=== PATIENT | female | born 1965 | race Caucasian/White ===

== ENCOUNTER 2018-01-24 08:02 | Day surgery (SDC) | payer OTHER ==
[~2018-01-24 08:02] MED LIST: Lactated Ringers 1,000 ML IV SCH; Lidocaine 2% 5 ML SDV ONE; Midazolam 1 MG/ML 2 ML SDV ONE; Propofol 200 MG/20 ML SDV ONE; fentaNYL 100 MCG/2 ML SDV ONE
--- NOTE | 2018-01-24 08:48 | PCM.PREANE ---
Preanesthetic Assessment - Anesthesia/Transfusion/Family Hx Anesthesia History: Prior Anesthesia Without Reaction Family History of Anesthesia Reaction: No Transfusion History: No Prior Transfusion(s) - Review of Systems General: No Symptoms Pulmonary: No Symptoms Cardiovascular: No Symptoms Gastrointestinal: No Symptoms Neurological: No Symptoms Other: Reports: None - Physical Assessment NPO Status Date: 01/23/18 NPO Status Time: 21:30 O2 Sat by Pulse Oximetry: 97 Respiratory Rate: 16 Vital Signs: Last Vital Signs Temp 97.5 F 01/24/18 08:21 Pulse 78 01/24/18 08:21 Resp 16 01/24/18 08:20 BP 130/68 01/24/18 08:20 Pulse Ox 97 01/24/18 08:20 Height: 5 ft 4 in Weight: 120.656 kg ASA Class: 3 Mental Status: Alert & Oriented x3 Airway Class: Mallampati = 3 Dentition: Reports: Normal Dentition Thyro-Mental Finger Breadths: 3 Mouth Opening Finger Breadths: 3 ROM/Head Extension: Limited/Partial Lungs: Clear to Auscultation, Normal Respiratory Effort Cardiovascular: Regular Rate, Regular Rhythm - Lab Values: Laboratory Last Values Urine HCG, Qual NEGATIVE (NEGATIVE) 01/24/18 08:15 - Allergies Allergies/Adverse Reactions: Allergies Allergy/AdvReac Type Severity Reaction Status Date / Time [place] And Derivatives Allergy Difficulty Verified 01/18/18 10:15 Breathing grass pollen Allergy Difficulty Verified 01/18/18 10:15 Breathing mold Allergy Hives Verified 01/18/18 10:15 mushroom Allergy Hives Verified 01/18/18 10:15 theophylline Allergy Sweating/steele Verified 01/18/18 10:15 lluncinatio ns tomato Allergy Rash Verified 01/18/18 10:15 raw tomato Allergy hives/difficulty Uncoded 01/18/18 10:15 breathing - Acknowledgements Anesthesia Type Planned: MAC Pt an Appropriate Candidate for the Planned Anesthesia: Yes Alternatives and Risks of Anesthesia Discussed w Pt/Guardian: Yes Pt/Guardian Understands and Agrees with Anesthesia Plan: Yes PreAnesthesia Questionnaire HEENT History: Reports: Other (See Below) Other HEENT History: wears glasses/ contacts Cardiovascular History: Reports: Hypertension Respiratory History: Reports: Asthma (Uses rescue inhaler x1-2 times per week.) , Sleep Apnea Other Respiratory History: uses CPAP Gastrointestinal History: Reports: GERD (occ.), Other (See Below) Other Gastrointestinal History: hx colitis Genitourinary History: Reports: Renal Calculus Other Genitourinary History: tubal GRAIN ORIGINATION SPECIALIST History: Reports: Ectopic , , Other (See Below) Other OB/BYN History: ovarian cyst Musculoskeletal History: Reports: Fracture Other Musculoskeletal History: toes Neurological History: Reports: None Psychiatric History: Reports: None Endocrine/Metabolic History: Reports: Obesity/BMI 30+ Hematologic History: Reports: None Immunologic History: Reports: None Oncologic (Cancer) History: Reports: None Dermatologic History: Reports: None - Infectious Disease History Infectious Disease History: Reports: None - Past Surgical History Head Surgeries/Procedures: Reports: None HEENT Surgical History: Reports: Tonsillectomy Cardiovascular Surgical History: Reports: None Respiratory Surgical History: Reports: None GI Surgical History: Reports: Colonoscopy Female Surgical History: Reports: Breast Biopsy, Kidney stone extraction, Other (See Below) Other Female Surgeries/Procedures: Laparoscopy for Ectopic , laparoscopy x2 for removal of ovarian cysts Endocrine Surgical History: Reports: None Neurological Surgical History: Reports: None Musculoskeletal Surgical History: Reports: None Oncologic Surgical History: Reports: Biopsy of Breast - SUBSTANCE USE Smoking Status *Q: Never Smoker Recreational Drug Use History: No - HOME MEDS Home Medications: Home Meds Albuterol Sulfate [Proair Hfa] 2 puff INH QID PRN 01/02/16 [History] amLODIPine [Norvasc] 1 tab PO BID 01/02/16 [History] Multivitamin [Multivitamins] 1 tab PO DAILY 01/18/18 [History] Vitamin B Complex 1 tab PO DAILY 01/18/18 [History] - CURRENT (IN HOUSE) MEDS Current Meds: Current Medications Lactated Ringer's (Ringers, Lactated) 1,000 mls @ 125 mls/hr IV ASDIRECTED [facility] Last Admin: 01/24/18 08:25 Dose: 125 mls/hr
--- NOTE | 2018-01-24 10:34 | PCM.OPNOTE ---
- General Post-Op/Procedure Note Date of Surgery/Procedure: 01/24/18 Operative Procedure(s): Colonoscopy Pre Op Diagnosis: Personal history of colitis. Desire for colorectal cancer screening. Post-Op Diagnosis: No evidence of inflammatory bowel disease or malignant disease. Anesthesia Technique: MAC (ASA III) Primary Surgeon: Mulugeta Guidry Condition: Good Free Text/Narrative:: DICTATION [id number] CPT CODE 21719
[2018-01-24] MEDS ORDERED: Lactated Ringers 1,000 ML IV SCH (10:45)
--- NOTE | 2018-01-24 10:50 | PCM.POSTAN ---
POST ANESTHESIA ASSESSMENT - MENTAL STATUS Mental Status: Alert, Oriented - VITAL SIGNS SaO2: 98 (RA) - RESPIRATORY Respiratory Status: Respiratory Rate WNL, Airway Patent, O2 Saturation Stable - CARDIOVASCULAR CV Status: Pulse Rate WNL, Blood Pressure Stable - GASTROINTESTINAL GI Status: No Symptoms - POST OP HYDRATION Hydration Status: Adequate & Stable
[2018-01-24 11:23] VITALS: BP 110/53
--- NOTE | 2018-01-24 11:43 | PCM48HPAN ---
Post Anesthesia Note - EVALUATION WITHIN 48HRS OF ANESTHETIC Vital Signs in Normal Range: Yes Patient Participated in Evaluation: Yes Respiratory Function Stable: Yes Airway Patent: Yes Cardiovascular Function Stable: Yes Hydration Status Stable: Yes Pain Control Satisfactory: Yes Nausea and Vomiting Control Satisfactory: Yes Mental Status Recovered: Yes Resp Rate: 16
--- NOTE | 2018-01-24 12:47 | OR ---
SURGEON: Mulugeta Guidry M.D. DATE OF PROCEDURE: 01/24/2018 OPERATION PERFORMED: Colonoscopy. ANESTHESIA: MAC. ASA CLASSIFICATION: III. PREOPERATIVE DIAGNOSES: 1. Remote history of colitis. 2. Desire for colorectal cancer screening. POSTOPERATIVE DIAGNOSES: No evidence of inflammatory bowel disease or malignancy. DESCRIPTION OF PROCEDURE: The patient was taken to the endoscopy room and positioned on the endoscopy table in the left lateral decubitus position. Time-out was called for appropriate identification of the patient and procedure. Monitored anesthesia care was provided. The colonoscope was inserted into the rectum and advanced with moderate difficulty to the cecum where the colonoscope was retroflexed to visualize the ascending colon from below. The colonoscope was then straightened and slowly withdrawn. The cecum, ascending colon, hepatic flexure, transverse colon, splenic flexure, descending colon, sigmoid colon, and rectum were very well visualized. No tumors, polyps, diverticula, or angiodysplastic changes were noted. There was no evidence of inflammatory bowel disease. Once the colonoscope was withdrawn to the rectum, it was retroflexed to visualize the anal orifice from above. Again, no tumors or polyps were seen. There were no acute hemorrhoidal changes. The colonoscope was then straightened, the rectum aspirated, and the colonoscope removed. The patient tolerated the procedure well and was taken to recovery room in stable condition. [place] /[id number]
== END 2018-01-24 11:26 | disposition home or self-care (01) ==
LOC: MW.SDS 08:02
PROVIDERS: ATTEND Surgery
DX: Z12.11 Encounter for screening for malignant neoplasm of colon (principal); I10 Essential (primary) hypertension; J45.909 Unspecified asthma, uncomplicated; E66.9 Obesity, unspecified; Z68.42 Body mass index [BMI] 45.0-49.9, adult; G47.30 Sleep apnea, unspecified; Z87.891 Personal history of nicotine dependence; Z87.19 Personal history of other diseases of the digestive system; Z79.899 Other long term (current) drug therapy; Z88.8 Allergy status to other drugs, medicaments and biological substances; Z91.018 Allergy to other foods; Z91.048 Other nonmedicinal substance allergy status
CPT/HCPCS: 45378; 81025; 93005; J2250; J3010; J7120; 00811; J2704

== ENCOUNTER 2019-11-01 11:53 | Emergency (ER) | payer OTHER, BC ==
[2019-11-01] MEDS ORDERED: Lidocaine 1% with EPINEPHrine 1:100,000 20 ML MDV INJECT ONE (12:27)
--- NOTE | 2019-11-01 12:43 | EDM.PDOC ---
ED HPI GENERAL MEDICAL PROBLEM - General Chief Complaint: Laceration Stated Complaint: INJURY TO RT LEG Time Seen by Provider: 11/01/19 12:42 Source of Information: Reports: Patient History Limitations: Reports: No Limitations - History of Present Illness INITIAL COMMENTS - FREE TEXT/NARRATIVE: Patient is a 54-year-old female with a past medical history of obesity presenting with a chief complaint of laceration to her right lower extremity. Patient states she was at work when a large metal object fell on her back leg. Patient denies any difficulty with ambulation. Patient reports laceration to the posterior calf. Patient states blood was controlled with direct pressure. Occurrence was just prior to arrival. Pmhx: Per HPI Pshx: None Family Hx: noncontributory Smoking history? no Etoh use? none Drug use? none Review of systems performed otherwise negative as per HPI I have reviewed the triage vital signs Const: Well nourished, well developed, appears stated age Eyes: PERRL, no conjunctival injection HENT: NCAT, Neck supple without meningismus CV: RRR, Warm, well-perfused extremities RESP: CTAB, Unlabored respiratory effort GI: soft, non-tender, non-distended, no masses MSK: No gross deformities appreciated Skin: Springer-shaped laceration to the right posterior calf Neuro: Alert, rivet tester II-XII grossly intact. Sensation and motor function of extremities grossly intact. Psych: Appropriate mood and affect Assessment and plan: Patient 54-year-old female presenting with laceration of the lower right lower extremity. Due to the nature of the wound, the patient only had loose closure performed. Wound is dressed with sterile dressing. Patient instructed to follow-up with general surgery for wound care. Patient educated on scarring that is likely to occur in this area given the wound. Patient given prophylactic antibiotics to prevent infection. All questions addressed and answered. Patient given return precautions. Procedure note laceration Repair: Oil Pumper: Dr. Howard Indication: Laceration Location: Right lower extremity Consent: Verbal consent was obtained by patient prior to the procedure. Risks and benefits were explained to patient. All questions were addressed and answered. The wound was prepped and draped in sterile fashion. Anesthesia was achieved with 5 mL of 2% lidocaine with epinephrine. The wound was irrigated (with 500cc NS) and explored. There were no foreign bodies (tendon injuries etc). The wound was reapproximated in 2 layers using two 4-0 Vicryl sutures subcutaneously and one loose 4-0 nylon suture. There was loose reapproximation of the wound edges. The patient tolerated the procedure without complication. Sterile dressing was applied. right leg Pain Score (Numeric/FACES): 3 - Related Data Allergies Allergy/AdvReac Type Severity Reaction Status Date / Time [place] And Derivatives Allergy Difficulty Verified 11/01/19 12:11 Breathing grass pollen Allergy Difficulty Verified 11/01/19 12:11 Breathing mold Allergy Hives Verified 11/01/19 12:11 mushroom Allergy Hives Verified 11/01/19 12:11 theophylline Allergy Sweating/steele Verified 11/01/19 12:11 lluncinatio ns tomato Allergy Rash Verified 11/01/19 12:11 raw tomato Allergy hives/difficulty Uncoded 11/01/19 12:11 breathing Home Meds: Home Meds Albuterol Sulfate [Proair Hfa] 2 puff INH QID PRN 01/02/16 [History] amLODIPine [Norvasc] 1 tab PO BID 01/02/16 [History] Multivitamin [Multivitamins] 1 tab PO DAILY 01/18/18 [History] Vitamin B Complex 1 tab PO DAILY 01/18/18 [History] cephALEXin [Keflex] 500 mg PO Q8H #9 cap 11/01/19 [Rx] Past Medical History HEENT History: Reports: Other (See Below) Other HEENT History: wears glasses/ contacts Cardiovascular History: Reports: Hypertension Respiratory History: Reports: Asthma, Sleep Apnea Other Respiratory History: uses CPAP Gastrointestinal History: Reports: GERD, Other (See Below) Other Gastrointestinal History: hx colitis Genitourinary History: Reports: Renal Calculus Other Genitourinary History: tubal PRODUCTION OFFICER History: Reports: Ectopic , , Other (See Below) Other PRODUCTION OFFICER History: ovarian cyst Musculoskeletal History: Reports: Fracture Other Musculoskeletal History: toes Neurological History: Reports: None Psychiatric History: Reports: None Endocrine/Metabolic History: Reports: Obesity/BMI 30+ Hematologic History: Reports: None Immunologic History: Reports: None Oncologic (Cancer) History: Reports: None Dermatologic History: Reports: None - Infectious Disease History Infectious Disease History: Reports: None - Past Surgical History Head Surgeries/Procedures: Reports: None HEENT Surgical History: Reports: Tonsillectomy Cardiovascular Surgical History: Reports: None Respiratory Surgical History: Reports: None GI Surgical History: Reports: Colonoscopy Female Surgical History: Reports: Breast Biopsy, Kidney stone extraction, Other (See Below) Other Female Surgeries/Procedures: Laparoscopy for Ectopic , laparoscopy x2 for removal of ovarian cysts Endocrine Surgical History: Reports: None Neurological Surgical History: Reports: None Musculoskeletal Surgical History: Reports: None Oncologic Surgical History: Reports: Biopsy of Breast Social & Family History - Family History Family Medical History: Noncontributory - Tobacco Use Smoking Status *Q: Never Smoker ED ROS GENERAL - Review of Systems Review Of Systems: See Below ED EXAM, SKIN/RASH Exam: See Below Course - Vital Signs Last Recorded V/S: Last Vital Signs Temp 36.6 C 11/01/19 12:09 Pulse 81 11/01/19 13:48 Resp 18 11/01/19 13:48 BP 140/93 H 11/01/19 13:48 Pulse Ox 98 11/01/19 13:48 - Orders/Labs/Meds Orders: Active Orders 24 hr Category Date Time Status Vaccines to be Administered [RC] PER UNIT ROUTINE Care 11/01/19 12:53 Active Meds: Medications Discontinued Medications Generic Name Dose Route Start Last Admin Trade Name Freq PRN Reason Stop Dose Admin Diphtheria/Tetanus/Acell Pertussis 0.5 ml 11/01/19 12:53 11/01/19 13:21 Adacel IM 11/01/19 12:54 0.5 ml .ONCE ONE Administration Lidocaine/Epinephrine 20 ml 11/01/19 12:27 11/01/19 13:21 Xylocaine 1% With Epinephrine 1:100,000 INJECT 11/01/19 12:28 20 ml ONETIME ONE Administration Departure - Departure Time of Disposition: 14:00 Disposition: Home, Self-Care 01 Clinical Impression: Laceration of right lower leg - Discharge Information Prescriptions: cephALEXin [Keflex] 500 mg PO Q8H #9 cap Instructions: Laceration Care, Adult, [id number] Referrals: Allegra Ryan MD [Physician] - Forms: ED Department Discharge Additional Instructions: The following information is given to patients seen in the emergency department who are being discharged to home. This information is to outline your options for follow-up care. We provide all patients seen in our emergency department with a follow-up referral. The need for follow-up, as well as the timing and circumstances, are variable depending upon the specifics of your emergency department visit. If you don't have a primary care physician on staff, we will provide you with a referral. We always advise you to contact your personal physician following an emergency department visit to inform them of the circumstance of the visit and for follow-up with them and/or the need for any referrals to a consulting specialist. The emergency department will also refer you to a specialist when appropriate. This referral assures that you have the opportunity for follow-up care with a specialist. All of these measure are taken in an effort to provide you with optimal care, which includes your follow- up. Under all circumstances we always encourage you to contact your private physician who remains a resource for coordinating your care. When calling for follow-up care, please make the office aware that this follow-up is from your recent emergency room visit. If for any reason you are refused follow-up, please contact the [facility] Emergency Department at and asked to speak to the emergency department charge nurse. [facility] [address] [place] [id number] [place] [address] 1. Please follow up with general surgery by wednesday. Call the phone number listed on your discharge. 2. Watch for signs and symptoms of infection. 3. Return to ED as needed as discussed. Sepsis Event Note - Evaluation Sepsis Screening Result: No Definite Risk - Focused Exam Date Exam was Performed: 11/02/19 Time Exam was Performed: 08:12 - My Orders Last 24 Hours: My Active Orders 11/01/19 12:53 Vaccines to be Administered [RC] PER UNIT ROUTINE - Assessment/Plan Last 24 Hours: My Active Orders 11/01/19 12:53 Vaccines to be Administered [RC] PER UNIT ROUTINE
[2019-11-01] MEDS ORDERED: Diphtheria,Pertussis(Acell),Tetanus Vaccine 0.5 ML Syringe IM ONE (12:53)
[2019-11-01] MEDS ORDERED: Sodium Chloride 0.9% 1,000 ML IV ONE (13:18)
[2019-11-01 13:49] VITALS: BP 140/93; PULSE 81
== END 2019-11-01 13:48 | disposition home or self-care (01) ==
LOC: MW.ED 11:53
DX: S81.811A Laceration without foreign body, right lower leg, initial encounter (principal); J45.909 Unspecified asthma, uncomplicated; I10 Essential (primary) hypertension; E66.9 Obesity, unspecified; Z68.41 Body mass index [BMI] 40.0-44.9, adult; Z23 Encounter for immunization; Z91.018 Allergy to other foods; W20.8XXA Other cause of strike by thrown, projected or falling object, initial encounter; Y99.0 Civilian activity done for income or pay
CPT/HCPCS: 12031; 90471; 90715; 99282-25

== ENCOUNTER 2023-03-10 09:36 | Emergency (ER) | payer OTHER, BC ==
[2023-03-10 13:15] VITALS: BP 156/88; PULSE 79
== END 2023-03-10 13:16 | disposition home or self-care (01) ==
LOC: MW.ED 09:36
DX: S60.222A Contusion of left hand, initial encounter (principal); J45.909 Unspecified asthma, uncomplicated; E66.9 Obesity, unspecified; Z91.018 Allergy to other foods; Z91.09 Other allergy status, other than to drugs and biological substances; W31.89XA Contact with other specified machinery, initial encounter
CPT/HCPCS: 73080-26-LT; 73080-LT; 73110-26-LT; 73110-LT; 73130-26-LT; 73130-LT; 99282; 99283